=== PATIENT | male | born 1960 | race Caucasian/White ===

== ENCOUNTER 2019-04-03 12:47 | Outpatient (CLI) | payer BC ==
--- NOTE | 2019-04-03 13:49 | ULT ---
Exam: Bilateral renal ultrasound complete: HISTORY: Chronic kidney disease, stage III COMPARISON: None FINDINGS: Right kidney: 12.8 x 6.4 x 6.5 cm Left kidney: 12.8 x 6.8 x 7.1 cm No renal hydronephrosis. No evidence for abnormal perinephric process. No solid or cystic renal mass. Unremarkable appearing bladder. Mildly coarse liver echogenicity. IMPRESSION: Unremarkable bilateral renal ultrasound. No hydronephrosis or perinephric process.
== END 2019-04-03 12:48 | disposition home or self-care (01) ==
LOC: SCSULT 12:47
PROVIDERS: ATTEND Internal Medicine Nephrology
DX: N18.3 Chronic kidney disease, stage 3 (moderate) (principal)
CPT/HCPCS: 76770

== ENCOUNTER 2019-07-17 10:50 | Day surgery (SDC) | payer BC ==
[2019-07-14 11:52] VITALS: BMI 41.8
--- NOTE | 2019-07-17 13:54 | MRI ---
MRI CERVICAL SPINE WITHOUT CONTRAST: HISTORY: Neck pain. Left shoulder and arm pain.. COMPARISON: None. FINDINGS: Appropriate T1 marrow signal intensity of the cervical vertebra. Cervical spine vertebral body heigh t is maintained. No fracture. No significant STIR hyperintensity to suggest vertebral body edema or ligamentous injury. Visualized brain parenchyma, cervical medullary junction, cervical cord and the upper thoracic cord h ave a normal size and signal intensity. Spondylolisthesis: C4 upon C5: 1.4 mm of anterolisthesis. C5 upon C6: 2.1 mm of retrolisthesis. C2-C3: No significant central canal stenosis or significant neural foraminal narrowing. C3-C4: Broad-based disc osteophyte complex effaces the subarachnoid space. Minimal contact upon the c ervical cord. No cord hyperintensity. Mild central canal stenosis. Mild to moderate right neural foraminal narrowing due to uncovertebral and a lesser extent facet hypertrophy. Mild left neural fora placido narrowing due to uncovertebral hypertrophy. C4-C5: Broad-based disc osteophyte complex with a left paracentral component. Mild central canal sten osis. Mild to moderate bilateral neural foraminal narrowing due to uncovertebral hypertrophy. C5-C6: Broad-based disc osteophyte complex effaces the subarachnoid space. There is mass effect upon the cervical cord. Moderate to severe central canal stenosis. No cord hyperintensity. Moderate to severe bilateral neural foraminal narrowing. C6-C7: Broad-based disc osteophyte complex nearly effaces subarachnoid space. Mild to moderate centra l canal stenosis. Moderate right and severe left foraminal narrowing due to uncovertebral hypertrophy. C7-T1: Broad-based disc bulge abuts the thecal sac. Subarachnoid space is maintained. There is a righ t paracentral component. Mild central canal stenosis. Moderate to severe right and moderate left neural foraminal narrowing. IMPRESSION: Degenerative changes of the cervical spine as detailed above. Transcribed Date/Time: 07/17/2019 2:02 PM
== END 2019-07-17 15:25 | disposition home or self-care (01) ==
LOC: SDC/OP 10:50
PROVIDERS: ATTEND Family Medicine
DX: M54.12 Radiculopathy, cervical region (principal); M43.12 Spondylolisthesis, cervical region; I10 Essential (primary) hypertension; E11.9 Type 2 diabetes mellitus without complications; E78.00 Pure hypercholesterolemia, unspecified; M19.90 Unspecified osteoarthritis, unspecified site; Z79.01 Long term (current) use of anticoagulants; Z79.4 Long term (current) use of insulin; Z79.899 Other long term (current) drug therapy
CPT/HCPCS: 36416; 72141

== ENCOUNTER 2019-09-04 12:20 | Outpatient (CLI) | payer BC ==
--- NOTE | 2019-09-04 12:38 | RAD ---
Chest 2 views HISTORY: Cough. Preop. FINDINGS: Cardiac silhouette and pulmonary vasculature upper limits of normal. Mediastinum is midline . No confluent airspace consolidation, pneumothorax, or pleural fluid are apparent. Degenerative changes of the right shoulder partially visualized. IMPRESSION: No active cardiopulmonary abnormalities are demonstrated.
== END 2019-09-04 12:21 | disposition home or self-care (01) ==
LOC: BICRAD 12:20
PROVIDERS: ATTEND Family Medicine
DX: Z01.818 Encounter for other preprocedural examination (principal)
CPT/HCPCS: 36415; 71046; 80053; 85025

== ENCOUNTER 2019-09-25 05:51 | Day surgery (SDC) | payer BC ==
[2019-09-22 09:40] VITALS: BMI 41.8
[2019-09-25] MEDS ORDERED: Thrombin 5000 UNITS/5 ML VIAL ONE (06:24)
[2019-09-25] MEDS ORDERED: Sodium Chloride 0.9% 10 ML ONE (06:24)
[2019-09-25 06:54] LABS: Hemoglobin 9.2 g/dL (14.0-18.0); Mean Corpuscular HGB CONC 33.1 g/dL (32.0-36.0); Mean Corpuscular Hemoglobin 27.6 pg (27.0-31.0); Mean Corpuscular Volume 83.4 fL (78.0-98.0); Mean Platelet Volume 8.3 fL (7.4-10.4); Platelet Count 168 thou/uL (130-400); RBC Distribution Width 13.9 % (11.5-14.5); Red Blood Cell (RBC) Count 3.34 mill/uL (4.70-6.10); White Blood Cell (WBC) Count 8.8 thou/uL (4.8-10.8)
[2019-09-25] MEDS ORDERED: Fentanyl 100 MCG/2 ML VIAL ONE ×2 (06:57→08:34)
[2019-09-25 07:13] LABS: Anion Gap 14 mmol/L (10-20); BUN (Urea Nitrogen) 45 mg/dL (8.4-25.7); Calc. Creatinine Clearance 63 mL/min (70-130); Calcium 8.5 mg/dL (7.8-10.44); Carbon Dioxide 18 mmol/L (22-29); Chloride 105 mmol/L (98-107); Estimated GFR-MDRD 28; Glucose 163 mg/dL (70-105); Potassium 5.3 mmol/L (3.5-5.1); Sodium 132 mmol/L (136-145)
[2019-09-25 07:42] LABS: INR-International Normal Ratio 1.2; PTT 34.8 SEC (22.9-36.1); Prothrombin Time 15.1 SEC (12.0-14.7)
[2019-09-25] MEDS ORDERED: Ondansetron HCl/PF 4 MG/2 ML Vial IVP PRN (09:25)
[2019-09-25] MEDS ORDERED: Promethazine HCl 25 MG/ML VIAL SLOW IVP PRN (09:25)
[2019-09-25] MEDS ORDERED: Promethazine HCl 25 MG/ML VIAL IM PRN (09:25)
[2019-09-25] MEDS ORDERED: SUGAMMADEX SODIUM 200 MG/2 ML VIAL ONE (09:42)
[2019-09-25] MEDS ORDERED: Metoclopramide HCl 10 MG/2 ML VIAL ONE (09:57)
[2019-09-25] MEDS ORDERED: PROPOFOL 200 MG/20 ML VIAL ONE (09:57)
[2019-09-25] MEDS ORDERED: PHENYLEPHRINE-NS 100 MCG/ML 10 ML SYRINGE ONE (09:57)
[2019-09-25] MEDS ORDERED: Lidocaine 1% PF 5 ML VIAL ONE (09:57)
[2019-09-25] MEDS ORDERED: Dexamethasone 20 MG/5 ML VIAL ONE (09:57)
[2019-09-25] MEDS ORDERED: Rocuronium Bromide 10 MG/ML (10ML VIAL) ONE (09:57)
[2019-09-25] MEDS ORDERED: Ondansetron PF 4 MG/2 ML Vial ONE (09:57)
[2019-09-25] MEDS ORDERED: Labetalol HCl 100 MG/20 ML VIAL ONE (09:57)
[2019-09-25] MEDS ORDERED: ePHEDrine/0.9% NaCl/PF SYRINGE 50 mg/10 ml ONE (09:57)
[2019-09-25] MEDS ORDERED: Glycopyrrolate 0.2 MG/ML 5 ML SYRINGE ONE (09:57)
[2019-09-25] MEDS ORDERED: Morphine 2 MG/ML SYRINGE SLOW IVP PRN (10:13)
[2019-09-25] MEDS ORDERED: Mag-Al 1200 mg/1200 mg/30 ML UDCUP PO PRN (10:13)
[2019-09-25] MEDS ORDERED: Milk Of Magnesia 30 ML UDCUP PO PRN (10:13)
[2019-09-25] MEDS ORDERED: Bisacodyl 10 MG SUPP PR PRN (10:13)
[2019-09-25] MEDS ORDERED: HYDROcodone/Acetaminophen 7.5/325 mg Tablet PO PRN (10:13)
[2019-09-25] MEDS ORDERED: Acetaminophen 325 MG TAB PO PRN (10:13)
[2019-09-25] MEDS ORDERED: Acetaminophen/Codeine 30-300mg Tablet PO PRN (10:13)
[2019-09-25] MEDS ORDERED: tiZANidine HCl 4 MG TAB PO PRN (10:13)
[2019-09-25] MEDS ORDERED: Fleet Enema 133 ML BOT PR PRN (10:13)
[2019-09-25] MEDS ORDERED: Ondansetron PF 4 MG/2 ML Vial IVP PRN (10:13)
[2019-09-25] MEDS ORDERED: PROVENTIL INHALER 6.7 G (200 INHALATIONS) INH PRN (10:18)
[2019-09-25] MEDS ORDERED: HumaLOG 300 UNITS/3 ML VIAL SC PRN ×2 (10:18→20:56)
[2019-09-25] MEDS: CEFAZOLIN 2 GM in Premix Bag 1 BAG IVPB SCH ×2 (13:40→17:51)
[2019-09-25] MEDS ORDERED: Furosemide 80 MG TAB PO SCH (17:18)
[2019-09-25] MEDS: Sodium Chloride 0.9% 1,000 ML IV SCH (17:52)
[2019-09-25] MEDS ORDERED: Dextrose 5% in Water 1,000 ML IV PRN (20:56)
[2019-09-25] MEDS ORDERED: Insulin Regular 300 UNITS/3 ML VIAL SC PRN (20:56)
[2019-09-25] MEDS ORDERED: Dextrose 50% Abboject 50 ML SYRINGE SLOW IVP PRN (20:56)
[2019-09-25] MEDS ORDERED: INSULIN GLARGINE HUM REC ANLOG 58 UNIT SQ SCH (21:00)
[2019-09-25] MEDS ORDERED: Insulin Glargine 58 UNITS in Pre-Filled Syringe 1 EACH SC SCH (21:00)
[2019-09-25] MEDS ORDERED: Polyethylene Glycol 3350 17 GM Packet PO PRN (21:35)
[2019-09-25] MEDS: Atorvastatin Calcium 20 MG TAB PO SCH (21:42)
[2019-09-25] MEDS ORDERED: Insulin Glargine 40 UNITS in Pre-Filled Syringe 1 EACH SC SCH (21:45)
[2019-09-25] MEDS ORDERED: hydrALAZINE 20 MG/ML VIAL SLOW IVP PRN (21:57)
[2019-09-25] MEDS: HumaLOG 300 UNITS/3 ML VIAL SC PRN (22:08)
--- NOTE | 2019-09-25 22:26 | CON ---
DATE OF CONSULTATION: 09/25/2019 PRIMARY CARE DOCTOR: Agustin Venegas MD. PRIMARY LONG WALL SHEAR OPERATOR: Luis Daniel Saucedo MD. REASON FOR CONSULTATION: Medical management. HISTORY OF PRESENT ILLNESS: The patient is a 58-year-old male with diabetes mellitus type 2, hypertension, cervical radiculopathy, who underwent cervical surgery earlier today. Hospitalist Team was consulted for medical management. He denies any chest pain, shortness of breath, palpitations, fever, or chills. Pain is controlled at this time. He had some issues with urinary retention, requiring in-and-out urinary catheter. PAST MEDICAL HISTORY: 1. Hypertension. 2. Paroxysmal atrial fibrillation. 3. Diabetes mellitus type 2. 4. CKD, stage 4. 5. Morbid obesity with a BMI of 41.8. 6. Degenerative joint disease. 7. Cervical radiculopathy. 8. Hyperlipidemia. 9. Chronic hearing deficit. PAST SURGICAL HISTORY: 1. Right leg surgery. 2. Cardiac catheterization. 3. Cardioversion. 4. Cardiac ablation in 2014. ALLERGIES: NO KNOWN DRUG ALLERGIES. CURRENT HOME MEDICATIONS: Reviewed as per [facility]. The patient is on 58 units of Lantus along with sliding scale. SOCIAL HISTORY: The patient currently lives at home. Denies current use of smoking. Makes his own decision with the help of his family. He is full code. FAMILY HISTORY: Positive for diabetes and hypertension. REVIEW OF SYSTEMS: All other review of systems was reviewed and was found negative. PHYSICAL EXAMINATION: VITAL SIGNS: Temperature 97.7, pulse of 73, respirations of 18, blood pressure of 127/76, and O2 saturation of 95% on 2 L nasal cannula, he was 93% on room air. GENERAL: A 58-year-old male in no apparent distress. Pain controlled. HEENT: Head, atraumatic and normocephalic. Sclerae anicteric. Moist mucous membrane. NECK: Supple. Neck brace noted. LUNGS: Showed diminished air entry at bilateral bases. No wheezing, rales, or rhonchi. HEART: S1, S2 present. Irregularly irregular. No rubs or gallops. ABDOMEN: Abdomen was soft, nontender. Bowel sounds present. EXTREMITIES: Bilateral lower extremity edema, which is chronic per patient report. SKIN: Warm and dry. He has chronic bilateral lower extremity wound. NEUROLOGIC: Grossly nonfocal. Moves all 4 extremities. PSYCHIATRY: Alert, awake, and oriented x3. LABORATORY FINDINGS: WBC 8.8 with hemoglobin 9.2. Creatinine of 2.4 with BUN 45. His BUN was 45 two weeks ago. His creatinine was 2.36 two weeks ago. EKG, by my review, showed atrial fibrillation. Chest x-ray, by my review, 2 weeks ago, was negative for acute findings. IMPRESSION: 1. Diabetes mellitus type 2. We will reduce the dose of Lantus to 40 units nightly. We will add 15 units Lantus q.a.m. We will start him on sliding scale. 2. Chronic kidney disease, stage 4. His creatinine is close to his baseline. Due to hyperkalemia of potassium 5.3, we will hold ARB. 3. Chronic bilateral lower extremity swelling with wounds. Wound Care will be consulted. 4. Paroxysmal atrial fibrillation. We will continue metoprolol 50 mg along with Cardizem at home dose. 5. Hyperlipidemia. We will continue statins. 6. Morbid obesity with a BMI of 41.8. 7. Hyponatremia. We will recheck labs in a.m. 8. Urinary retention, probably secondary to anesthesia. We will continue to monitor, in-and-out catheter as needed. Thank you very much for this consultation. We will follow up with you. Job ID: [id number]
[2019-09-26] MEDS ORDERED: Insulin Glargine 20 UNITS in Pre-Filled Syringe 1 EACH SC SCH (02:30)
[2019-09-26] MEDS: CEFAZOLIN 2 GM in Premix Bag 1 BAG IVPB SCH ×4 (03:02→20:47)
[2019-09-26] MEDS: Sodium Chloride 0.9% 1,000 ML IV SCH ×2 (03:02→14:25)
[2019-09-26] MEDS: HumaLOG 300 UNITS/3 ML VIAL SC PRN ×3 (03:03→18:14)
[2019-09-26 05:48] LABS: Anion Gap 14 mmol/L (10-20); BUN (Urea Nitrogen) 54 mg/dL (8.4-25.7); Calc. Creatinine Clearance 53 mL/min (70-130); Calcium 8.4 mg/dL (7.8-10.44); Carbon Dioxide 19 mmol/L (22-29); Chloride 102 mmol/L (98-107); Estimated GFR-MDRD 23; Glucose 304 mg/dL (70-105); Potassium 6.4 mmol/L (3.5-5.1); Sodium 129 mmol/L (136-145)
[2019-09-26] MEDS ORDERED: Losartan 25 MG TAB PO SCH (09:00)
[2019-09-26] MEDS ORDERED: FLU VACC QS2019-20(6MOS UP)/PF 60 MCG/0.5 ML SYRINGE IM ONE (09:00)
[2019-09-26] MEDS ORDERED: Insulin Glargine 15 UNITS in Pre-Filled Syringe 1 EACH SC SCH (09:00)
[2019-09-26] MEDS: Furosemide 40 MG TAB PO SCH (09:08)
[2019-09-26] MEDS: Metoprolol Tartrate 25 MG TAB PO SCH (09:09)
[2019-09-26] MEDS: Senokot S 8.6-50 MG TAB PO SCH ×2 (09:10→20:55)
--- NOTE | 2019-09-26 10:50 | OP ---
DATE OF PROCEDURE: 09/25/2019 LOCATION: OR 12. BOAT CLEANER: Gely Cardozo PA-C. PREPROCEDURE DIAGNOSIS: Cervical stenosis with neck and arm pain. POSTPROCEDURE DIAGNOSIS: Cervical stenosis with neck and arm pain. PROCEDURE PERFORMED: 1. Anterior C5-C6, C6-C7 diskectomies for decompression of spinal cord nerve roots. 2. Placement of interbody spacer, C5-C6, C6-C7, packed with graft for arthrodesis C5-C6, C6-C7. 3. Anterior cervical plate and screw fixation C5, C6, C7. 4. Use of operative microscope for microdissection. DESCRIPTION OF PROCEDURE: After informed consent was obtained from the patient, the patient was brought to the OR. Proper patient, pause, and identification were carried out. He was placed in excellent general endotracheal anesthesia and positioned supine on the OR table. Right anterior oblique faby was drawn out. He was morbidly obese and localization was challenging. We were able to draw the right anterior oblique faby. This area was sterilely cleansed, prepared and draped. Proper patient, pause, and identification were carried out. The wound was then opened with combination of sharp, monopolar, and blunt dissection, proceeded lateral to the tracheoesophageal bundle medial to the right carotid sheath. We identified the prevertebral layer of deep cervical fascia and anterior C5, C6, C7 segments were exposed along with the discs. These regions were sterilely cleansed, prepared, and draped. The longus colli muscles were swept laterally and the retractors brought in, microscope was brought in for microdissection. C5-C6 diskectomy then occurred, decompression of spinal cord and C6 nerve roots. Copious irrigation occurred. Interbody spacer packed with graft was placed at C5-C6 for arthrodesis. We then removed the distraction. Distraction at C6-C7 then occurred. We then distracted at C6-C7 and diskectomy was performed at C6-C7 with decompression of spinal cord nerve roots at that segment. Interbody spacer was placed. We then turned our attention and removed the microscope. Anterior cervical plate and screw fixation C5-C6, C6-C7 then occurred with final tightening. Copious irrigation occurred throughout as did maximizing hemostasis. The wound was closed in anatomic layers over drain. Job ID: [id number]
[2019-09-26] MEDS: traMADol HCl 50 MG TAB PO PRN (11:51)
--- NOTE | 2019-09-26 13:11 | PRG ---
DATE OF SERVICE: 09/26/2019 Mr. Alvarado is doing well on postoperative day 1 from C5 to C7 ACDF. He has had improvement in his arm pain. Unfortunately, he does have multiple medical comorbidities. He is anemic at 9.2, although blood loss was very little. His sodium has gone from 132 yesterday to 129 today and his potassium from 5.3 up to 6.4. His sugars have been in the 292 to 364 range. He is neurologically intact and doing well this morning. His drain output has been only 40 mL of serosanguineous output. We are getting his medical issues squared away and we will allow for dismissal likely tomorrow. I would like to hold his aspirin for 1 week and his Xarelto for 2 weeks. Job ID: [id number]
--- NOTE | 2019-09-26 14:49 | PDOC.HOSPP ---
- Subjective Encounter Date: 09/26/19 Encounter Time: 14:37 Subjective: no fever, chills, chest pain, etc - Objective Vital Signs & Weight: Vital Signs (12 hours) Temp Pulse Resp BP BP Pulse Ox 09/26/19 09:09 95 156/96 H 09/26/19 08:00 99 09/26/19 07:43 97.8 F 95 18 151/96 H 99 09/26/19 04:13 97.4 F L 88 18 154/90 H 92 L Weight Admit Weight 300 lb Weight 300 lb I&O: 09/25/19 09/26/19 09/27/19 06:59 06:59 06:59 Intake Total 1430 Output Total 40 Balance 1390 Result Diagrams: 09/25/19 06:32 09/26/19 05:09 Additional Labs: Accuchecks 09/26/19 09/26/19 09/26/19 11:42 05:27 02:10 POC Glucose 301 H 292 H 364 H 09/25/19 20:42 POC Glucose 363 H Hospitalist ROS - Medication Medications: Active Medications Generic Name Dose Route Start Last Admin Trade Name Freq PRN Reason Stop Dose Admin Albumin Human 25 gm 09/26/19 12:00 09/26/19 14:16 Albumin 5% IVPB 09/27/19 06:01 25 gm Q6HR DIXIE Administration Atorvastatin Calcium 20 mg 09/25/19 21:00 09/25/19 21:42 Lipitor PO 20 mg HS DIXIE Administration Diltiazem HCl 240 mg 09/26/19 09:00 09/26/19 09:09 Cardizem Cd PO 240 mg QAM DIXIE Administration Furosemide 80 mg 09/26/19 09:00 09/26/19 09:08 Lasix PO 80 mg QAM DIXIE Administration Cefazolin Sodium/Dextrose 2 gm 50 mls @ 100 mls/hr 09/25/19 10:15 09/26/19 09 :30 / Device IVPB 50 mls Q8H DIXIE Administration Sodium Chloride 1,000 mls @ 75 mls/hr 09/25/19 10:15 09/26/19 14:25 Normal Saline 0.9% IV Not Given .[id number] DIXIE Insulin Human Lispro 0 units 09/25/19 20:56 09/26/19 03:03 Humalog SC 5 unit .BEDTIME SLIDING SC PRN Administration Bedtime Correctional Scale Insulin Human Lispro 0 units 09/25/19 21:31 09/26/19 12:01 Humalog SC 8 unit .MODERATE SLIDING SC PRN Administration Moderate Correctional Scale Metoprolol Tartrate 50 mg 09/26/19 09:00 09/26/19 09:09 Lopressor PO 50 mg QAM DIXIE Administration Senna/Docusate Sodium 2 tab 09/26/19 09:00 09/26/19 09:10 Senokot S PO 2 tab BID DIXIE Administration Tramadol HCl 50 mg 09/25/19 10:13 09/26/19 11:51 Ultram PO 50 mg Q6H PRN Administration Mild Pain (1-3) - Exam General Appearance: awake alert Neck: no JVD Heart: RRR, no murmur Respiratory: CTAB Gastrointestinal: soft, normal bowel sounds Extremities: no edema Hosp A/P (1) DM type 2 causing CKD stage 4 Code(s): E11.22 - TYPE 2 DIABETES MELLITUS W DIABETIC CHRONIC KIDNEY DISEASE; N18.4 - CHRONIC KIDNEY DISEASE, STAGE 4 (SEVERE) Status: Chronic Qualifiers: Diabetes mellitus terminal operator insulin use: with terminal operator use Qualified Code( s): E11.22 - Type 2 diabetes mellitus with diabetic chronic kidney disease; N18.4 - Chronic kidney disease, stage 4 (severe); Z79.4 - terminal operator (current) use of insulin (2) HTN (hypertension) Code(s): I10 - ESSENTIAL (PRIMARY) HYPERTENSION Status: Chronic Qualifiers: Hypertension type: essential hypertension Qualified Code(s): I10 - Essential (primary) hypertension (3) Atrial fibrillation, transient Code(s): I48.91 - UNSPECIFIED ATRIAL FIBRILLATION Status: Chronic (4) Anticoagulant long-term use Code(s): Z79.01 - RECONCILIATION SPECIALIST (CURRENT) USE OF ANTICOAGULANTS Status: Chronic - Plan doing well cont accu/ss/ glargine cont antihypertensives concur with holding xarelto/asa
[2019-09-26 18:33] LABS: Anion Gap 13 mmol/L (10-20); BUN (Urea Nitrogen) 50 mg/dL (8.4-25.7); Calc. Creatinine Clearance 59 mL/min (70-130); Calcium 8.8 mg/dL (7.8-10.44); Carbon Dioxide 21 mmol/L (22-29); Chloride 101 mmol/L (98-107); Estimated GFR-MDRD 26; Glucose 218 mg/dL (70-105); Potassium 4.8 mmol/L (3.5-5.1); Sodium 130 mmol/L (136-145)
[2019-09-26] MEDS: Atorvastatin Calcium 20 MG TAB PO SCH (20:54)
[2019-09-26] MEDS ORDERED: Insulin Glargine 40 UNITS in Pre-Filled Syringe 1 EACH SC SCH (21:00)
[2019-09-26] MEDS ORDERED: Insulin Glargine 58 UNITS in Pre-Filled Syringe 1 EACH SC SCH (21:00)
[2019-09-27] MEDS: traMADol HCl 50 MG TAB PO PRN ×2 (02:10→14:56)
[2019-09-27] MEDS: Sodium Chloride 0.9% 1,000 ML IV SCH (03:08)
[2019-09-27] MEDS: CEFAZOLIN 2 GM in Premix Bag 1 BAG IVPB SCH ×2 (04:17→13:13)
[2019-09-27 06:11] LABS: Anion Gap 11 mmol/L (10-20); BUN (Urea Nitrogen) 45 mg/dL (8.4-25.7); Calc. Creatinine Clearance 66 mL/min (70-130); Calcium 8.6 mg/dL (7.8-10.44); Carbon Dioxide 24 mmol/L (22-29); Chloride 105 mmol/L (98-107); Estimated GFR-MDRD 29; Glucose 73 mg/dL (70-105); Potassium 4.3 mmol/L (3.5-5.1); Sodium 136 mmol/L (136-145)
[2019-09-27] MEDS ORDERED: Sodium Chloride 0.65% Nasal 44 ML BOT EA NARE PRN (08:18)
[2019-09-27] MEDS ORDERED: Diabetic Tussin 200 MG/10 ML UDCUP PO PRN (08:18)
[2019-09-27] MEDS ORDERED: Cepastat Lozenges 1 LOZ PO PRN (08:18)
[2019-09-27] MEDS ORDERED: Loratadine 10 MG TAB PO PRN (08:18)
[2019-09-27] MEDS ORDERED: Loperamide HCl 2 MG CAP PO PRN (08:18)
[2019-09-27] MEDS: Senokot S 8.6-50 MG TAB PO SCH (08:55)
[2019-09-27] MEDS: Metoprolol Tartrate 25 MG TAB PO SCH (08:55)
[2019-09-27] MEDS: Furosemide 40 MG TAB PO SCH (08:55)
--- NOTE | 2019-09-27 10:43 | PRG ---
DATE OF SERVICE: 09/27/2019 SUBJECTIVE: Mr. Alvarado is a 58-year-old white male, who underwent a cervical neck surgery for cervical radiculopathy. We were consulted due to his acute kidney injury on top of his chronic renal failure. He had a superimposed hemodynamically-mediated renal dysfunction. Albumin infusion was given with improvement of the renal function. In addition, he was also noted to be hyperkalemic. He was given Kayexalate with lactulose, which improved the serum potassium. This morning, he voices no new complaints. No chest pain or shortness of breath. OBJECTIVE: VITAL SIGNS: Blood pressure 154/98, heart rate 113, temperature 97.8, respiratory rate 18, O2 saturation 96% on room air. GENERAL: Noted to be awake, alert, comfortable, not in overt distress. SKIN: Adequate turgor. HEENT: Pinkish conjunctivae. Anicteric sclerae. No neck mass. No carotid bruits. No JVD. CHEST: No deformities. LUNGS: Clear breath sounds. No wheezing. No crackles. HEART: Normal sinus rhythm. No murmur. No gallops. No rubs. ABDOMEN: Globular, soft nontender. No masses. EXTREMITIES: He is positive for +2 bilateral edema. No deformities. MEDICATIONS: Medications of September 27, 2019 was reviewed. LABORATORY DATA: Laboratories of September 27, 2019: Sodium 136, potassium 4.3 chloride 105, carbon dioxide 24, BUN 45, creatinine 2.29, glucose 73, calcium 8.6. On September 25, 2019, hemoglobin 9.2. ASSESSMENT AND PLAN: 1. Acute kidney injury superimposed hemodynamically-mediated dysfunctional type of chronic renal failure. I will continue to hold off any angiotensin II receptor antagonists or angiotensin converting enzyme inhibitors for the moment with this patient. 2. Chronic leg edema. Continuing Lasix at 80 mg tablet once a day. 3. Status post cervical neck surgery-stable. Doing well. Neurosurgery is following. 4. I agree with current management. I told the patient to follow up with me at the renal clinic. Job ID: [id number]
--- NOTE | 2019-09-27 11:49 | PDOC.HOSPP ---
- Subjective Encounter Date: 09/27/19 Encounter Time: 08:30 Subjective: Patient seen and examined. No new complaints. No overnight events - Objective Vital Signs & Weight: Vital Signs (12 hours) Temp Pulse Resp BP BP BP Pulse Ox 09/27/19 08:56 113 H 154/98 H 09/27/19 08:14 97.8 F 113 H 18 154/98 H 96 09/27/19 06:14 97.9 F 99 16 120/74 99 09/27/19 04:22 97.9 F 99 16 120/74 95 09/27/19 00:11 97.8 F 97 16 128/83 97 Weight Admit Weight 300 lb Weight 300 lb I&O: 09/26/19 09/27/19 09/28/19 06:59 06:59 06:59 Intake Total 1430 3774 Output Total 40 1710 Balance 1390 2064 Result Diagrams: 09/25/19 06:32 09/27/19 05:33 Additional Labs: Accuchecks 09/27/19 09/26/19 09/26/19 02:20 20:46 17:35 POC Glucose 112 H 197 H 221 H 09/26/19 11:42 POC Glucose 301 H Hospitalist ROS - Review of Systems Constitutional: denies: fever, chills, sweats, weakness, malaise, other Eyes: denies: pain, vision change, conjunctivae inflammation, eyelid inflammation, redness, other ENT: denies: ear pain, ear discharge, nose pain, nose discharge, nose congestion , mouth pain, mouth swelling, throat pain, throat swelling, other Respiratory: denies: cough, dry, shortness of breath, hemoptysis, SOB with excertion, pleuritic pain, sputum, wheezing, other Cardiovascular: denies: chest pain, palpitations, orthopnea, paroxysmal noc. dyspnea, edema, light headedness, other Gastrointestinal: denies: nausea, vomiting, abdominal pain, diarrhea, constipation, melena, hematochezia, other Genitourinary: denies: dysuria, frequency, incontinence, hematuria, retention, other Musculoskeletal: denies: neck pain, shoulder pain, arm pain, back pain, hand pain, leg pain, foot pain, other - Medication Medications: Active Medications Generic Name Dose Route Start Last Admin Trade Name Freq PRN Reason Stop Dose Admin Atorvastatin Calcium 20 mg 09/25/19 21:00 09/26/19 20:54 Lipitor PO 20 mg HS DIXIE Administration Diltiazem HCl 240 mg 09/26/19 09:00 09/27/19 08:56 Cardizem Cd PO 240 mg QAM DIXIE Administration Furosemide 80 mg 09/26/19 09:00 09/27/19 08:55 Lasix PO 80 mg QAM DIXIE Administration Sodium Chloride 1,000 mls @ 75 mls/hr 09/25/19 10:15 09/27/19 03:08 Normal Saline 0.9% IV Not Given .[id number] DIXIE Insulin Glargine 58 units/ 0.58 mls @ 0 mls/hr 09/26/19 21:00 09/26/19 20:55 Miscellaneous Medication SC 0.58 mls HS DIXIE Administration Cefazolin Sodium/Dextrose 2 gm 50 mls @ 100 mls/hr 09/26/19 20:00 09/27/19 04 :17 / Device IVPB 50 mls 0400,1200,2000 DIXIE Administration Insulin Human Lispro 0 units 09/25/19 20:56 09/26/19 03:03 Humalog SC 5 unit .BEDTIME SLIDING SC PRN Administration Bedtime Correctional Scale Insulin Human Lispro 0 units 09/25/19 21:31 09/26/19 18:14 Humalog SC 4 unit .MODERATE SLIDING SC PRN Administration Moderate Correctional Scale Metoprolol Tartrate 50 mg 09/26/19 09:00 09/27/19 08:55 Lopressor PO 50 mg QAM DIXIE Administration Senna/Docusate Sodium 2 tab 09/26/19 09:00 09/27/19 08:55 Senokot S PO Not Given BID DIXIE Tramadol HCl 50 mg 09/25/19 10:13 09/27/19 02:10 Ultram PO 50 mg Q6H PRN Administration Mild Pain (1-3) - Exam General Appearance: NAD, awake alert Eye: PERRL, anicteric sclera ENT: normocephalic atraumatic, no oropharyngeal lesions Neck: supple, symmetric, no JVD, no thyromegaly Neck - other findings: drain in place, dressing at surgical site Heart: RRR, no murmur, no gallops, no rubs Respiratory: CTAB, no wheezes, no rales, no ronchi Gastrointestinal: soft, non-tender, non-distended, normal bowel sounds Extremities: no cyanosis, no clubbing Skin: normal turgor, no lesions Neurological: no focal deficits Musculoskeletal: normal tone, normal strength Psychiatric: normal affect, normal behavior Hosp A/P (1) S/P cervical discectomy Code(s): Z98.890 - OTHER SPECIFIED POSTPROCEDURAL STATES Status: Acute (2) Morbid obesity with BMI of 40.0-44.9, adult Code(s): E66.01 - MORBID (SEVERE) OBESITY DUE TO EXCESS CALORIES; Z68.41 - BODY MASS INDEX (BMI) 40.0-44.9, ADULT Status: Chronic (3) CKD (chronic kidney disease) stage 4, GFR 15-29 ml/min Code(s): N18.4 - CHRONIC KIDNEY DISEASE, STAGE 4 (SEVERE) Status: Chronic (4) Anticoagulant long-term use Code(s): Z79.01 - NURSING HOME (CURRENT) USE OF ANTICOAGULANTS Status: Chronic (5) Atrial fibrillation, transient Code(s): I48.91 - UNSPECIFIED ATRIAL FIBRILLATION Status: Chronic (6) DM type 2 causing CKD stage 4 Code(s): E11.22 - TYPE 2 DIABETES MELLITUS W DIABETIC CHRONIC KIDNEY DISEASE; N18.4 - CHRONIC KIDNEY DISEASE, STAGE 4 (SEVERE) Status: Chronic Qualifiers: Diabetes mellitus alf insulin use: with alf use Qualified Code( s): E11.22 - Type 2 diabetes mellitus with diabetic chronic kidney disease; N18.4 - Chronic kidney disease, stage 4 (severe); Z79.4 - MCC (current) use of insulin (7) HTN (hypertension) Code(s): I10 - ESSENTIAL (PRIMARY) HYPERTENSION Status: Chronic Qualifiers: Hypertension type: essential hypertension Qualified Code(s): I10 - Essential (primary) hypertension - Plan old records reviewed/req 09/27/19 drain removal as per surgeon medically stable medication reviewed and continue to provide symptomatic treatment discharge per primary team
[2019-09-27 12:41] VITALS: BP 138/83; TEMP 98.5
--- NOTE | 2019-09-27 14:31 | DIS ---
DATE OF ADMISSION: 09/25/2019 DATE OF DISCHARGE: 09/27/2019 DISCHARGE DISPOSITION: Home. PRIMARY DISCHARGE DIAGNOSIS: Status post cervical diskectomy. SECONDARY DISCHARGE DIAGNOSES: Morbid obesity with BMI of 41, hypertension, chronic kidney disease stage 4, diabetes type 2, paroxysmal atrial fibrillation. PRIMARY PROCEDURE/OPERATION: Cervical diskectomy. RADIOLOGICAL INVESTIGATION: None. SIGNIFICANT LABORATORY DATA: Hemoglobin 9.2. INR 1.2. Creatinine 2.29. DISCHARGE MEDICATIONS: The patient will continue all his previous medication as instructed. The patient will continue aspirin and other blood thinner when neurosurgeon approves. Rest of medication as per previous. CONTRAINDICATION: None. CODE STATUS: Full code. INPATIENT FOOD PROCESSOR: Dr. Kendall, Sound Team, and neurosurgeon. TEST RESULTS PENDING ON DISCHARGE: None. ALLERGIES: NO KNOWN DRUG ALLERGIES. DISCHARGE PLAN: Posthospital, the patient will follow up with Neurosurgery as instructed. The patient will make appointment with primary care physician in one week. HOSPITAL COURSE: A 58-year-old male who was admitted for cervical diskectomy, which was done by Dr. Chavez. Postoperatively, the patient had drain, which was removed today. The patient was also evaluated by Nephrology. The patient's medical problems remained stable, and the patient is planned for discharge to home with his previous medication except blood thinner medication, which will be resumed when neurosurgeon okayed. Job ID: [id number]
--- NOTE | 2019-09-28 10:24 | CON ---
DATE OF CONSULTATION: HISTORY OF PRESENT ILLNESS: Mr. Luis Alvardao is a 58-year-old white male with known history of chronic renal failure from diabetic nephropathy and was recently admitted for cervical surgery. He has underlying cervical radiculopathy and underwent cervical surgery. He is doing well. We were consulted for his acute kidney injury on top of his chronic renal failure as well as for the hyperkalemia. Please note, the patient was previously on candesartan. This has been discontinued yesterday by Dr. Gleason. He is feeling better today. REVIEW OF SYSTEMS: No chest pain or shortness of breath. Occasional postoperative pain. No nausea. No vomiting. No diarrhea. No constipation. No productive cough. No gross hematuria. No dysuria. Appetite and energy level are fair. MEDICATIONS: 1. Albuterol two puffs as directed. 2. Atorvastatin 20 mg tablet nightly. 3. Cefazolin 2 g IV q.8. 4. Diltiazem 240 mg q.a.m. 5. Furosemide 80 mg p.o. q.a.m. 6. Humalog sliding scale. 7. Hydrocodone q.4 p.r.n. 8. Insulin glargine 58 units subcutaneous nightly. 9. Metoprolol tartrate 50 mg q.a.m. PAST MEDICAL HISTORY: 1. Chronic renal failure from diabetic nephropathy. 2. Coronary artery disease. 3. DJD. 4. Cervical radiculopathy. 5. Type 2 diabetes mellitus, 23 years duration. 6. History of hearing loss. 7. Coronary artery disease. 8. AFib. 9. Hyperlipidemia. PAST SURGICAL HISTORY: 1. Status post cervical neck surgery recently. 2. Status post cardioversion. 3. Status post cardiac cath. 4. Status post coronary artery stent placement. 5. Status post cardiac ablation. 6. Status post left leg surgery, placement of rods and pins. 7. Status post left heel surgery secondary to a crush injury. SOCIAL HISTORY: The patient is . He lives in [place], but originally from [place]. 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 He has 2 children. No history of smoking, 2-3 beers per week. No IV drug abuse. No blood transfusion. FAMILY HISTORY: No family history of ESRD. ALLERGIES: NONE. TRAUMA: Status post left heel fracture. HOSPITALIZATIONS: Please see past medical history. IMMUNIZATIONS: Up-to-date. PHYSICAL EXAMINATION: VITAL SIGNS: Blood pressure 156/96, heart rate 95, respiratory rate 18, temperature 97.8, and pulse ox 99%. GENERAL: Noted to be awake, alert, sitting comfortable, not in distress. SKIN: Adequate turgor. HEENT: Pinkish conjunctivae. Anicteric sclerae. NECK: No neck mass. Positive for cervical neck collar. LUNGS: Clear breath sounds. No wheezing. No crackles. HEART: Normal sinus rhythm. No murmur. No gallops. No rubs. ABDOMEN: Globular, soft, and nontender. No masses. EXTREMITIES: No edema. No deformities. LABORATORY DATA: On 09/26/2019: Sodium 129, potassium 6.4, chloride 102, carbon dioxide 19, BUN 54, creatinine 2.84, glucose 304, and calcium 8.4. On 2018: Creatinine 2.4. On 09/04/2019: Creatinine 2.36. Hemoglobin is 9.2. ASSESSMENT AND PLAN: 1. Acute kidney injury on top of his chronic renal failure. Consider hemodynamically-mediated renal dysfunction on top of his chronic renal failure. We will start albumin infusion 25 g IV daily. We will continue the p.o. Lasix x1 more dose to help lower the potassium. 2. Hyperkalemia, Kayexalate 30 g with lactulose 30 mL was ordered. Continue the one-time dose of Lasix. 3. There is no indication for any dialytic intervention with this patient. Continue supportive care. 4. Status post cervical neck surgery, stable. Neurosurgery is following. We will recheck basic metabolic in a.m. Job ID: [id number] [facility]
--- NOTE | 2019-09-28 10:52 | PRG ---
DATE OF SERVICE: 09/27/2019 Mr. Alvarado is doing very well on postoperative day #2 from C5-C7 ACDF. He has minimal pain in his posterior neck, but denies any arm pain or symptoms. He has only required tramadol for pain. Sodium was low at 129 yesterday. We discussed the restriction of free water and encourage minimum Gatorade, and Nephrology was consulted. The patient's sodium was improved to 136 today. He has also had improvement of his potassium, which is 4.3 today. The patient is doing well, and he is cleared for discharge home at this time. His cervical LAMONT drain was removed without any complication. I discussed with the patient postoperative wound care as well as postoperative restrictions. He will follow up with us in clinic for his 2-1/2 week postop appointment as scheduled. The patient will call with any questions or concerns. He was sent in tramadol for pain. Job ID: [id number]
--- NOTE | 2019-09-28 11:04 | DIS ---
DATE OF ADMISSION: 09/25/2019 DATE OF DISCHARGE: 09/27/2019 This is Benoit Quinn PA-C dictating a report for Jean Chavez MD. DISCHARGE DIAGNOSES: 1. End-stage renal disease. 2. Type 2 diabetes mellitus. 3. Cervical spinal stenosis with radiculopathy. HOSPITAL COURSE: Mr. Alvarado was admitted to undergo multilevel ACDF with Dr. Chavez on 09/25/2019. His surgery was without complication and 1 drain was placed. The patient required 2 overnight stays in the hospital as he has end-stage renal disease and he had hyponatremia postoperatively. His free water intake was restricted and continued on fluids. Nephrology was also consulted to help with his management and our hospitalist colleagues to help manage his blood glucose. At the time of discharge, the patient had some soreness in the back of the neck, but otherwise had no arm pain. He met criteria for discharge. His LAMONT drain was removed prior to discharge. Appropriate patient education and outpatient followups were provided to the patient. He understands to call the office with questions or concerns, but otherwise the patient is doing well postoperatively with excellent strength in the bilateral upper extremities. Job ID: [id number]
== END 2019-09-27 15:20 | disposition home or self-care (01) ==
LOC: SDC 05:51 → SJJU 10:22 → SDC 09-27 15:20
PROVIDERS: ATTEND Surgery
PROC: 0RG20A0 Fusion of 2 or more Cervical Vertebral Joints with Interbody Fusion Device, Anterior Approach, Anterior Column, Open Approach (ICD-10-PCS; principal; 2019-09-25)
PROC: 0RT30ZZ Resection of Cervical Vertebral Disc, Open Approach (ICD-10-PCS; principal; 2019-09-25)
DX: M48.02 Spinal stenosis, cervical region (principal); M54.12 Radiculopathy, cervical region; E11.21 Type 2 diabetes mellitus with diabetic nephropathy; N18.6 End stage renal disease; N17.9 Acute kidney failure, unspecified; D63.1 Anemia in chronic kidney disease; I11.0 Hypertensive heart disease with heart failure; I50.9 Heart failure, unspecified; K21.9 Gastro-esophageal reflux disease without esophagitis; M19.90 Unspecified osteoarthritis, unspecified site; I25.10 Atherosclerotic heart disease of native coronary artery without angina pectoris; E78.00 Pure hypercholesterolemia, unspecified; I48.0 Paroxysmal atrial fibrillation; E78.5 Hyperlipidemia, unspecified; E87.1 Hypo-osmolality and hyponatremia; R33.9 Retention of urine, unspecified; E87.5 Hyperkalemia; E66.01 Morbid (severe) obesity due to excess calories; Z68.41 Body mass index [BMI] 40.0-44.9, adult; Z79.01 Long term (current) use of anticoagulants; Z79.4 Long term (current) use of insulin; Z79.82 Long term (current) use of aspirin; Z79.899 Other long term (current) drug therapy
CPT/HCPCS: 36415; 36416; 76000; 80048; 85027; 85610; 85730; 90471; 90686; C1776; G0008; J0690; J1100; J1815; J2001; J2405; J2704; J2765; J3010; J3490; P9045

== ENCOUNTER 2019-10-04 13:04 | Emergency (ER) | payer BC ==
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
--- NOTE | 2019-10-04 14:46 | RAD ---
XR Shoulder Lt 3 View STANDARD HISTORY: Injury, left shoulder pain FINDINGS: No fracture or dislocation is identified.
== END 2019-10-04 15:33 | disposition home or self-care (01) ==
LOC: ERS 13:04
DX: M25.512 Pain in left shoulder (principal); E11.9 Type 2 diabetes mellitus without complications; I11.0 Hypertensive heart disease with heart failure; I50.9 Heart failure, unspecified; E78.5 Hyperlipidemia, unspecified; Z79.01 Long term (current) use of anticoagulants; Z79.899 Other long term (current) drug therapy; Z79.4 Long term (current) use of insulin; V67.5XXA Driver of heavy transport vehicle injured in collision with fixed or stationary object in traffic accident, initial encounter
CPT/HCPCS: 70450; 71045; 72125

== ENCOUNTER 2019-11-08 08:55 | Outpatient (CLI) | payer BC ==
--- NOTE | 2019-11-08 09:26 | RAD ---
4 VIEWS CERVICAL SPINE: Date: 11/08/2019 COMPARISON: None. HISTORY: Cervical spine surgery. FINDINGS: Anterior diskectomy and fusion hardware present at C5-6/C6-7. There is mild anterolisthesis at C4-5 m easuring approximately 3.0 mm. There is mild prevertebral soft tissue swelling anterior to the fusion hardware. No evidence for hardware failure. Open-mouth odontoid view demonstrates a normal appearing dens and C1-2 articulation. Bilateral mid and lower cervical spine facet and uncovertebral osteophyt e formation noted, most prominent at C4-5 and C5-6. IMPRESSION: Postoperative and degenerative change within the cervical spine as detailed above. POS: LOIDA
== END 2019-11-08 08:56 | disposition home or self-care (01) ==
LOC: TBSIIMAG 08:55
PROVIDERS: ATTEND Surgery
DX: M54.2 Cervicalgia (principal); M47.812 Spondylosis without myelopathy or radiculopathy, cervical region; Z98.890 Other specified postprocedural states
CPT/HCPCS: 72040